=== PATIENT | male | born 1975 | race Caucasian/White ===

== ENCOUNTER → 2017-02-24 | Outpatient (CLI) | payer BC ==
[~2017-02-24] MED LIST: ACYC1CAP8 PO; DULO60CA44 PO; LISD40CA PO; TRAZ50TA35 PO
[2017-02-27 06:59] LABS: CHLAMYDIA TRACH RNA*** NOT DETECTED (NOT DETECTED); GC (NEIS GONORRHOEAE)RNA** NOT DETECTED (NOT DETECTED)
[2017-02-28 15:28] LABS: HERPES SIMPLEX CULT SOURCE GENITAL-PENILE SKIN; HERPES SIMPLEX VIRUS CULT ISOLATED (NOT ISOLATED)
[2017-03-01 08:30] LABS: HSVTYPE2REFLEX ONLY!DON'T ORDR ISOLATED (NOT ISOLATED)
== END | disposition home or self-care (01) ==
LOC: C.LABPVFM 09:12
PROVIDERS: ATTEND Family Medicine
DX: Z11.3 Encounter for screening for infections with a predominantly sexual mode of transmission (principal); N50.89 Other specified disorders of the male genital organs

== ENCOUNTER 2017-03-02 09:05 | Emergency (ER) | payer BC, OTHER ==
[~2017-03-02] VITALS: Ht 177.8 cm; Wt 90.5 kg
[2017-03-02 09:07] VITALS: TEMP 37.2; Ht 177.8 cm; Wt 90.5 kg
[2017-03-02] MEDS ORDERED: SODIUM CHLORIDE 0.9% 1000ML 1,000 ML IV STA (09:22)
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
[2017-03-02] MEDS ORDERED: ACYC1CAP8 PO (09:42)
[2017-03-02] MEDS ORDERED: TRAZ50TA35 PO (09:42)
[2017-03-02] MEDS ORDERED: DULO60CA44 PO (09:42)
[2017-03-02] MEDS ORDERED: LISD40CA PO (09:42)
[2017-03-02 09:49] LABS: BASO % 0.6 %; BASO ABS # 0.04 K/uL (0-0.2); COMPLETE YES; EOS % 3.4 %; HEMATOCRIT 47.6 % (42-52); IG% 0.1 %; LYMPH % 39.9 %; MEAN CELL VOLUME 87.3 fL (80-100); MEAN CORPUSCULAR HEMOGLOBIN 29.5 pg (25-34); MEAN CORPUSCULAR HGB CONC 33.8 g/dl (32-36); MEAN PLATELET VOLUME 9.4 fL (7.4-10.4); MONO % 10.1 %; NEUT % 45.9 %; PLATELET COUNT 285 K/uL (130-400); RED BLOOD COUNT 5.45 M/uL (4.7-6.1); WHITE BLOOD COUNT 6.76 K/uL (4.8-10.8)
[2017-03-02] MEDS ORDERED: BACITRACIN OINT 15 GM TUBE ONE (09:56)
[2017-03-02 10:06] LABS: BUN/CREATININE RATIO 12.4 (10-20); CALCIUM 9.5 mg/dl (8.5-10.1); CREATININE 1.2 mg/dl (0.60-1.40); POTASSIUM 3.6 mmol/L (3.5-5.1)
[2017-03-02 10:21] VITALS: BP 125/84; PULSE 98; O2SAT 98
== END 2017-03-02 11:00 | disposition short-term general hospital (02) ==
LOC: C.EDB 09:07
DX: T22.031A Burn of unspecified degree of right upper arm, initial encounter (principal); T24.001A Burn of unspecified degree of unspecified site of right lower limb, except ankle and foot, initial encounter; T24.002A Burn of unspecified degree of unspecified site of left lower limb, except ankle and foot, initial encounter; X12.XXXA Contact with other hot fluids, initial encounter; E78.5 Hyperlipidemia, unspecified; F32.9 Major depressive disorder, single episode, unspecified; G47.30 Sleep apnea, unspecified; Z79.899 Other long term (current) drug therapy

== ENCOUNTER → 2017-11-07 | Outpatient (CLI) | payer OTHER ==
[~2017-11-07] MED LIST changes: +ACYC-57 PO; -ACYC1CAP8 PO
[2017-11-07 12:45] LABS: BASO % 0.4 %; BASO ABS # 0.03 K/uL (0-0.2); EOS % 2.8 %; EOS ABS # 0.19 K/uL (0-0.5); HEMATOCRIT 46.7 % (42-52); HEMOGLOBIN 16.1 g/dL (14.0-18.0); IG# 0.04 K/uL (0.00-0.02); LYMPH % 34.2 %; LYMPH ABS # 2.31 K/uL (1.2-3.4); MEAN CELL VOLUME 87.5 fL (80-100); MEAN CORPUSCULAR HEMOGLOBIN 30.1 pg (25-34); MEAN CORPUSCULAR HGB CONC 34.5 g/dl (32-36); MEAN PLATELET VOLUME 9.8 fL (7.4-10.4); MONO % 8.7 %; MONO ABS # 0.59 K/uL (0.11-0.59); NEUT % 53.3 %; NEUT ABS # 3.59 K/uL (1.4-6.5); PLATELET COUNT 306 K/uL (130-400); RED CELL DISTRIBUTION WIDTH CV 12.8 % (11.5-14.5); RED CELL DISTRIBUTION WIDTH SD 40.9 fL (36.4-46.3); WHITE BLOOD COUNT 6.75 K/uL (4.8-10.8)
== END | disposition home or self-care (01) ==
LOC: C.LABPVFM 09:49
PROVIDERS: ATTEND Family Medicine
DX: R53.83 Other fatigue (principal)

== ENCOUNTER → 2018-04-10 | Outpatient (CLI) | payer OTHER ==
[2018-04-14 16:31] LABS: EBV EARLY ANTIGEN AB < 9.00 U/ML; TESTOSTERONE,TOTAL 345 ng/dL (250-1100)
== END | disposition home or self-care (01) ==
LOC: C.LABPVFM 13:50
PROVIDERS: ATTEND Family Medicine
DX: R53.83 Other fatigue (principal)